=== PATIENT | male | born 1990 | race Caucasian/White ===

== ENCOUNTER 2021-08-02 18:40 | Emergency (ER) | payer OTHER ==
[~2021-08-02 18:40] MED LIST: AMOXICILLIN875 MG PO; NORCO 5-325 TA1 EACH PO; PROTONIX40 MG PO; ZOFRAN4 MG PO
[2021-08-02] MEDS ORDERED: CYCLOBENZAPRINE10 MG PO (20:16)
[2021-08-02] MEDS ORDERED: NAPROXEN500 MG PO (20:16)
== END 2021-08-02 20:44 | disposition home or self-care (01) ==
LOC: FER 18:40
DX: S16.1XXA Strain of muscle, fascia and tendon at neck level, initial encounter (principal); Z91.030 Bee allergy status; V49.40XA Driver injured in collision with unspecified motor vehicles in traffic accident, initial encounter
CPT/HCPCS: 71250; 72125; 72128; 93005; J1885

== ENCOUNTER 2021-08-03 01:35 | Emergency (ER) | payer OTHER ==
[~2021-08-03 01:35] MED LIST changes: +CYCLOBENZAPRINE10 MG PO; +NAPROXEN500 MG PO
[2021-08-03 02:07] LABS: BASOPHIL 0.7 % (0-2); EOSINOPHIL 2.2 % (0-5); HCT 41.3 % (42.0-52.0); HGB 14.6 g/dl (13.2-18.0); LYMPHOCYTE 38.1 % (15-48); MCH 33.1 pg (25.0-31.0); MCHC 35.4 g/dL (32.0-36.0); MCV 93.7 fL (78.0-100.0); MONOCYTE 10.1 % (0-12); MPV 10.6 fL (6.0-9.5); NEUTROPHIL 48.7 % (41-80); NRBC 0; PLT 163 K/uL (150-400); RBC 4.41 M/uL (4.70-6.00); RDW 11.9 % (11.5-14.0); WBC 8.5 K/uL (4.0-10.5)
[2021-08-03 02:20] LABS: INR 1.04 (0.9-1.2)
[2021-08-03 02:26] LABS: ALBUMIN 4.3 g/dL (3.4-5.0); BILIRUBIN - TOTAL 0.7 mg/dL (0.2-1.0); BUN/CREAT RATIO (CALC) 18.6 RATIO; CREATININE 1.13 mg/dL (0.67-1.17); GLOBULIN (CALCULATION) 3.3 g/dL; POTASSIUM 3.6 mmol/L (3.5-5.1); TOTAL PROTEIN 7.6 g/dL (6.4-8.2)
[2021-08-03 02:27] LABS: BILIRUBIN NEGATIVE (NEGATIVE); BLOOD NEGATIVE Ery/uL (NEGATIVE); CLARITY CLEAR (CLEAR); COLOR YELLOW (YELLOW); GLUCOSE (U) NORMAL (NORMAL); LEUKOCYTES NEGATIVE Leu/uL (NEGATIVE); NITRITE NEGATIVE (NEGATIVE); PROTEIN NEGATIVE (NEGATIVE); SPECIFIC GRAVITY >=1.030 (1.001-1.030); UROBILINOGEN 0.2 mg/dL (0.2-1.0)
== END 2021-08-03 05:20 | disposition home or self-care (01) ==
LOC: FER 01:35
PROVIDERS: Emergency Medicine
DX: R10.9 Unspecified abdominal pain (principal); Z28.310 Unvaccinated for COVID-19; V89.2XXA Person injured in unspecified motor-vehicle accident, traffic, initial encounter
CPT/HCPCS: 36415; 72131; 80053; 81003; 83690; 85025; 85610; J2270; J7030; Q9967